=== PATIENT | female | born 1970 | race Caucasian/White ===

== ENCOUNTER 2020-02-23 18:59 | Emergency (ER) | payer SELFPAY ==
[~2020-02-23] VITALS: Ht 175.3 cm; Wt 75.0 kg
[2020-02-23 19:08] VITALS: BP 112/73
== END 2020-02-23 19:28 | disposition left against medical advice (07) ==
LOC: ER 18:59
DX: M79.645 Pain in left finger(s) (principal); Z53.21 Procedure and treatment not carried out due to patient leaving prior to being seen by health care provider

== ENCOUNTER 2020-02-23 22:31 | Emergency (ER) | payer BC ==
[~2020-02-23] VITALS: Ht 175.3 cm; Wt 75.0 kg
[2020-02-23] MEDS ORDERED: CEPHALEXIN 250MG CAPSULE PO ONE (23:30)
[2020-02-23] MEDS ORDERED: ACETAMINOPHEN WITH CODEINE 300/30MG TABLET PO ONE (23:30)
[2020-02-23 23:32] VITALS: BP 120/72
== END 2020-02-23 23:33 | disposition home or self-care (01) ==
LOC: ER 22:31
DX: L03.012 Cellulitis of left finger (principal); J45.909 Unspecified asthma, uncomplicated
CPT/HCPCS: 99283